=== PATIENT | male | born 1960 | race Caucasian/White ===

== ENCOUNTER 2016-05-12 21:58 | Inpatient (IN) | payer BC ==
[2016-05-13 05:48] LABS: HEMOGLOBIN 14.7 gm/dl (14.0-17.5); RED BLOOD COUNT 5.11 M/UL (4.20-5.50); WHITE BLOOD COUNT 7.7 K/UL (4.5-11.0)
[2016-05-13 06:10] LABS: BUN/CREATININE RATIO 14 (0-10)
[2016-05-13] MEDS ORDERED: SUDOGEST30 MG PO (13:17)
[2016-05-13] MEDS ORDERED: ZYRTEC10 MG PO (13:17)
[2016-05-13] MEDS ORDERED: NORVASC 5 MG TAB5 MG PO (13:18)
[2016-05-13] MEDS ORDERED: OMEPRAZOLE40 MG PO (13:19)
[2016-05-14 04:20] LABS: HEMOGLOBIN 14.9 gm/dl (14.0-17.5); RED BLOOD COUNT 5.17 M/UL (4.20-5.50)
[2016-05-14 04:28] LABS: WHITE BLOOD COUNT 15.6 K/UL (4.5-11.0)
[2016-05-14 04:41] LABS: BUN/CREATININE RATIO 19 (0-10)
[2016-05-15 03:55] LABS: HEMOGLOBIN 14.6 gm/dl (14.0-17.5); RED BLOOD COUNT 5.09 M/UL (4.20-5.50); WHITE BLOOD COUNT 11.9 K/UL (4.5-11.0)
[2016-05-15 04:18] LABS: BUN/CREATININE RATIO 20 (0-10)
[2016-05-16 11:13] LABS: HEMOGLOBIN 14.4 gm/dl (14.0-17.5); RED BLOOD COUNT 5.09 M/UL (4.20-5.50)
[2016-05-16 11:36] LABS: BUN/CREATININE RATIO 19 (0-10)
[2016-05-17 05:26] LABS: BUN/CREATININE RATIO 19 (0-10)
[2016-05-18 03:38] LABS: HEMOGLOBIN 14.6 gm/dl (14.0-17.5); RED BLOOD COUNT 5.22 M/UL (4.20-5.50); WHITE BLOOD COUNT 7.5 K/UL (4.5-11.0)
[2016-05-18 03:59] LABS: BUN/CREATININE RATIO 16 (0-10)
[2016-05-19 04:24] LABS: BUN/CREATININE RATIO 13 (0-10)
[2016-05-20 03:59] LABS: BUN/CREATININE RATIO 11 (0-10)
[2016-05-21 03:37] LABS: HEMOGLOBIN 13.5 gm/dl (14.0-17.5); RED BLOOD COUNT 4.87 M/UL (4.20-5.50); WHITE BLOOD COUNT 7.1 K/UL (4.5-11.0)
[2016-05-21 03:46] LABS: BUN/CREATININE RATIO 14 (0-10)
[2016-05-21] MEDS ORDERED: ASPIRIN EC81 MG PO (15:49)
[2016-05-21] MEDS ORDERED: LIPITOR TAB 2020 MG PO (15:50)
[2016-05-21] MEDS ORDERED: COREG 12.5MG12.5 MG PO ×2 (15:51→15:53)
[2016-05-21] MEDS ORDERED: LASIX 40 MG TAB40 MG PO (15:53)
[2016-05-21] MEDS ORDERED: LASIX40 MG PO (15:54)
[2016-05-21] MEDS ORDERED: ZYVOX 600 MG T600 MG PO (15:56)
[2016-05-21] MEDS ORDERED: LISINOPRIL5 MG PO (15:57)
[2016-05-21] MEDS ORDERED: K-DUR TAB 20 M20 MEQ PO (15:58)
[2016-05-21] MEDS ORDERED: PROTONIX40 MG PO (15:58)
[2016-05-21] MEDS ORDERED: ALDACTONE25 MG PO (15:59)
[2016-05-21] MEDS ORDERED: BRILINTA 90 MG90 MG PO (16:00)
[2016-05-21] MEDS ORDERED: NITROSTAT0.4 MG SL (16:04)
[2016-05-21] MEDS ORDERED: PROAIR HFA8.5 GM INH (16:17)
== END 2016-05-21 17:16 | disposition home or self-care (01) | DRG 246 ==
LOC: CCU 21:58 → ZOBSOF 22:41 → CCU 22:41 → PROG CARE 22:41 → CCU 05-13 00:50 → PROG CARE 05-15 11:52
PROVIDERS: Internal Medicine; Internal Medicine Cardiovascular Disease; Internal Medicine Infectious Disease; ADMIT Internal Medicine
PROC: 5A1935Z Respiratory Ventilation, Less than 24 Consecutive Hours (ICD-10-PCS; principal; 2016-05-12)
PROC: B2111ZZ Fluoroscopy of Multiple Coronary Arteries using Low Osmolar Contrast (ICD-10-PCS; 2016-05-13)
PROC: 4A023N7 Measurement of Cardiac Sampling and Pressure, Left Heart, Percutaneous Approach (ICD-10-PCS; 2016-05-13)
PROC: 027034Z Dilation of Coronary Artery, One Artery with Drug-eluting Intraluminal Device, Percutaneous Approach (ICD-10-PCS; 2016-05-13)
PROC: 027035Z Dilation of Coronary Artery, One Artery with Two Drug-eluting Intraluminal Devices, Percutaneous Approach (ICD-10-PCS; 2016-05-19)
DX: I21.09 ST elevation (STEMI) myocardial infarction involving other coronary artery of anterior wall (principal); R57.0 Cardiogenic shock; J96.00 Acute respiratory failure, unspecified whether with hypoxia or hypercapnia; J18.9 Pneumonia, unspecified organism; I50.23 Acute on chronic systolic (congestive) heart failure; G93.1 Anoxic brain damage, not elsewhere classified; J98.11 Atelectasis; N39.0 Urinary tract infection, site not specified; N17.9 Acute kidney failure, unspecified; R34 Anuria and oliguria; I27.2 Other secondary pulmonary hypertension; I11.0 Hypertensive heart disease with heart failure; I25.5 Ischemic cardiomyopathy; I49.3 Ventricular premature depolarization; I25.10 Atherosclerotic heart disease of native coronary artery without angina pectoris; R41.0 Disorientation, unspecified; E78.5 Hyperlipidemia, unspecified; R05 Cough; E87.6 Hypokalemia; R53.81 Other malaise; B95.62 Methicillin resistant Staphylococcus aureus infection as the cause of diseases classified elsewhere; Z79.899 Other long term (current) drug therapy
CPT/HCPCS: 0; ECHO; 36415; 36600; 70450; 71010; 80048; 80053; 80061; 80202; 81001; 82550; 82553; 82803; 82962; 83036; 83735; 84443; 84484; 85025; 85027; 87040; 87070; 87077; 87086; 87186; 87205; 93005; 93306; 94002; 94003; 94640; 94664; 97110; 97116; 97530; 97535; C1725; C1769; C1874; C1887; C9113; C9600; J0171; J0461; J0583; J1335; J1644; J2250; J2370; J3010; J3370; J7030; J7040; J7050; J7070; Q9965

== ENCOUNTER → 2016-06-06 | Outpatient (CLI) | payer BC ==
[~2016-06-06] MED LIST: ALDACTONE25 MG PO; ASPIRIN EC81 MG PO; BRILINTA 90 MG90 MG PO; COREG 12.5MG12.5 MG PO; K-DUR TAB 20 M20 MEQ PO; LASIX 40 MG TAB40 MG PO; LASIX40 MG PO; LIPITOR TAB 2020 MG PO; LISINOPRIL5 MG PO; NITROSTAT0.4 MG SL; NORVASC 5 MG TAB5 MG PO; OMEPRAZOLE40 MG PO; PROAIR HFA8.5 GM INH; PROTONIX40 MG PO; SUDOGEST30 MG PO; ZYRTEC10 MG PO; ZYVOX 600 MG T600 MG PO
[2016-06-06 11:16] LABS: HEMOGLOBIN 13.7 gm/dl (14.0-17.5); RED BLOOD COUNT 5.03 M/UL (4.20-5.50); WHITE BLOOD COUNT 6.2 K/UL (4.5-11.0)
[2016-06-06 11:36] LABS: BUN/CREATININE RATIO 22 (0-10)
== END ==
PROVIDERS: Internal Medicine Cardiovascular Disease
DX: I10 Essential (primary) hypertension (principal); Z98.61 Coronary angioplasty status; I21.3 ST elevation (STEMI) myocardial infarction of unspecified site; I25.5 Ischemic cardiomyopathy
CPT/HCPCS: 36415; 80053; 85025

== ENCOUNTER 2016-07-04 23:39 | Emergency (ER) | payer BC | END 2016-07-05 03:00 | disposition home or self-care (01) | LOC: ER1 23:39 | DX: T78.3XXA Angioneurotic edema, initial encounter (principal); I10 Essential (primary) hypertension; Z79.899 Other long term (current) drug therapy | CPT/HCPCS: 96374; 96375; 99283; J1200; J2930 ==

== ENCOUNTER → 2016-07-11 | Outpatient (CLI) | payer BC | LOC: HEART 5 13:01 | DX: I10 Essential (primary) hypertension (principal); I25.5 Ischemic cardiomyopathy; I42.0 Dilated cardiomyopathy; I21.3 ST elevation (STEMI) myocardial infarction of unspecified site; Z98.61 Coronary angioplasty status | CPT/HCPCS: 93306 ==

== ENCOUNTER → 2016-08-15 | Outpatient (CLI) | payer BC | LOC: HEART 5 08:56 | DX: I50.9 Heart failure, unspecified (principal); I42.0 Dilated cardiomyopathy; I25.5 Ischemic cardiomyopathy | CPT/HCPCS: 93306 ==